=== PATIENT | female | born 1955 | race Caucasian/White ===

== ENCOUNTER 2018-09-16 20:54 | Emergency (ER) | payer OTHER ==
[~2018-09-16] VITALS: Ht 167.6 cm; Wt 55.3 kg
[2018-09-16 21:43] LABS: BASOPHILS ABSOLUTE AUTO 0.02 K/mm3 (0.00-0.23); BASOPHILS PERCENT AUTO 0 % (0-2); EOSINOPHILS PERCENT AUTO 2 % (0-6); Hematocrit 37.8 % (33.0-51.0); Hemoglobin 12.1 g/dL (11.5-16.0); IMMATURE GRAN ABSOLUTE AUTO 0.02 K/mm3 (0.00-0.10); IMMATURE GRAN PERCENT AUTO 0 % (0-1); LYMPHOCYTES ABSOLUTE AUTO 1.07 K/mm3 (0.84-5.20); LYMPHOCYTES PERCENT AUTO 17 % (21-46); MONOCYTES ABSOLUTE AUTO 0.68 K/mm3 (0.16-1.47); MONOCYTES PERCENT AUTO 11 % (4-13); Mean Corpuscular HGB 30.9 pg (26.0-34.0); Mean Corpuscular Volume 97 fL (80-100); NEUTROPHILS ABSOLUTE AUTO 4.38 K/mm3 (1.96-9.15); NEUTROPHILS PERCENT AUTO 70 % (41-73); Platelet Count 200 K/mm3 (150-400); RDW Coefficient Variation 13.8 % (11.7-14.2); RDW Standard Deviation 49.2 fL (35.1-46.3); Red Blood Cell Count 3.91 M/mm3 (3.80-5.20); White Blood Cell Count 6.27 K/mm3 (4.00-11.30)
[2018-09-16 22:10] LABS: Source, Urine Clean Catch
[2018-09-16 22:13] LABS: Bilirubin, Urine Neg (Neg); Blood, Urine 1+ (Neg); Glucose Qualitative, Urine Neg (Neg); Ketones, Urine 4+ (Neg); Leukocyte Esterase, Urine 2+ (Neg); Nitrite, Urine Neg (Neg); Protein, Urine 2+ (Neg); Urobilinogen, Urine 1+ (Normal)
[2018-09-16 22:20] LABS: Alanine Aminotransfer (ALT/SGP 27 U/L (12-78); Albumin, Blood 2.6 g/dL (3.4-5.0); Albumin/Globulin Ratio 0.6 (0.8-1.8); Alk Phos 129 U/L (50-136); Anion Gap 6 mmol/L (6-16); Aspartate Aminotrans (AST/SGOT 17 U/L (12-37); Bilirubin, Total 0.4 mg/dL (0.1-1.0); Blood Urea Nitrogen 9 mg/dL (8-24); Bun/Creatinine Ratio 14.3 (12.0-20.0); CO2, Blood 29 mmol/L (21-32); Calcium, Blood 8.6 mg/dL (8.5-10.1); Chloride, Blood 107 mmol/L (98-108); Creatinine, Blood 0.63 mg/dL (0.40-1.00); Globulin, Blood 4.2 g/dL (2.2-4.0); Glomerular Filtration Rate >60 (60-); Glucose, Blood 93 mg/dL (70-99); Potassium, Blood 3.2 mmol/L (3.5-5.5); Sodium, Blood 142 mmol/L (136-145); Total Protein, Blood 6.8 g/dL (6.4-8.2)
[2018-09-16 22:21] LABS: Amorphous Light (0-Heavy); Appearance, Urine Hazy (Clear); Bacteria Few /hpf; Color, Urine Yellow (P-Yellow); Mucus Mod (0-Heavy); Squamous Epithelial Cells Rare /hpf (Few)
[2018-09-16] MEDS ORDERED: SYNTHROID100 MC1 PO (23:27)
[2018-09-16] MEDS ORDERED: ONDA4 PO (23:27)
[2018-09-16] MEDS ORDERED: VENL37.5ER PO (23:27)
[2018-09-16] MEDS ORDERED: IBUP800 PO (23:27)
[2018-09-16] MEDS ORDERED: TRAZ50 PO (23:28)
[2018-09-16] MEDS ORDERED: BENADRYL25 MG PO (23:29)
[2018-09-16] MEDS ORDERED: Esgic Tablet1 EACH PO (23:30)
== END 2018-09-17 02:00 | disposition short-term general hospital (02) ==
LOC: ER 20:54
PROVIDERS: Emergency Medicine
DX: T81.43XA Infection following a procedure, organ and space surgical site, initial encounter (principal); K65.1 Peritoneal abscess; Z88.8 Allergy status to other drugs, medicaments and biological substances
CPT/HCPCS: 36415; 74177; 80053; 81001; 83605; 85025; 86850; 86900; 86901; 87086; 93005; 93010; 96374-59; 96375-59; 99285-25; J2405; J2543; J2550; J3010; J7030; Q9967

== ENCOUNTER 2018-09-20 00:11 | Day surgery (SDC) | payer OTHER ==
[~2018-09-20 00:11] MED LIST: BENADRYL25 MG PO; Esgic Tablet1 EACH PO; IBUP800 PO; ONDA4 PO; SYNTHROID100 MC1 PO; TRAZ50 PO; VENL37.5ER PO
[2018-09-20] MEDS ORDERED: VALACYCLOVIR500 MG PO (14:06)
== END 2018-09-20 14:30 | disposition home or self-care (01) ==
LOC: ATC 00:11
DX: N73.0 Acute parametritis and pelvic cellulitis (principal); Z90.710 Acquired absence of both cervix and uterus
CPT/HCPCS: 96365; J0696

== ENCOUNTER 2018-09-23 13:39 | Day surgery (SDC) | payer OTHER ==
[~2018-09-23 13:39] MED LIST changes: +VALACYCLOVIR500 MG PO
== END 2018-09-23 14:09 | disposition home or self-care (01) ==
LOC: ATC 13:39
DX: N73.0 Acute parametritis and pelvic cellulitis (principal)
CPT/HCPCS: 96365; J0696

== ENCOUNTER 2018-09-24 13:30 | Day surgery (SDC) | payer OTHER | END 2018-09-24 14:03 | disposition home or self-care (01) | LOC: ATC 13:30 | DX: N73.0 Acute parametritis and pelvic cellulitis (principal) | CPT/HCPCS: 96365; J0696 ==

== ENCOUNTER 2018-09-26 00:25 | Day surgery (SDC) | payer OTHER | END 2018-09-26 15:34 | disposition home or self-care (01) | LOC: ATC 00:25 | DX: N73.0 Acute parametritis and pelvic cellulitis (principal) | CPT/HCPCS: 96365; J0696 ==

== ENCOUNTER 2018-09-27 00:09 | Day surgery (SDC) | payer OTHER | END 2018-09-27 14:23 | disposition home or self-care (01) | LOC: ATC 00:09 | DX: N73.0 Acute parametritis and pelvic cellulitis (principal) | CPT/HCPCS: 96365; J0696 ==

== ENCOUNTER 2018-09-28 00:06 | Day surgery (SDC) | payer OTHER ==
[2018-09-28 16:23] LABS: BASOPHILS PERCENT AUTO 1 % (0-2); EOSINOPHILS ABSOLUTE AUTO 0.07 K/mm3 (0.00-0.68); EOSINOPHILS PERCENT AUTO 1 % (0-6); Hematocrit 35.8 % (33.0-51.0); Hemoglobin 11.2 g/dL (11.5-16.0); IMMATURE GRAN ABSOLUTE AUTO 0.04 K/mm3 (0.00-0.10); IMMATURE GRAN PERCENT AUTO 1 % (0-1); LYMPHOCYTES ABSOLUTE AUTO 1.65 K/mm3 (0.84-5.20); LYMPHOCYTES PERCENT AUTO 20 % (21-46); MONOCYTES ABSOLUTE AUTO 0.72 K/mm3 (0.16-1.47); MONOCYTES PERCENT AUTO 9 % (4-13); Mean Corpuscular HGB 30.4 pg (26.0-34.0); Mean Corpuscular HGB Conc 31.3 g/dL (31.5-36.5); Mean Corpuscular Volume 97 fL (80-100); Mean Platelet Volume 9.2 fL (9.1-12.4); NEUTROPHILS ABSOLUTE AUTO 5.55 K/mm3 (1.96-9.15); NEUTROPHILS PERCENT AUTO 68 % (41-73); Platelet Count 447 K/mm3 (150-400); RDW Coefficient Variation 14.1 % (11.7-14.2); RDW Standard Deviation 49.5 fL (35.1-46.3); Red Blood Cell Count 3.69 M/mm3 (3.80-5.20); White Blood Cell Count 8.13 K/mm3 (4.00-11.30)
[2018-09-28 16:39] LABS: C-REACTIVE PROTEIN, EXT RANGE 0.315 mg/dL (0.000-0.300)
[2018-09-28 16:42] LABS: Alanine Aminotransfer (ALT/SGP 23 U/L (12-78); Albumin, Blood 3.1 g/dL (3.4-5.0); Albumin/Globulin Ratio 0.8 (0.8-1.8); Alk Phos 80 U/L (50-136); Anion Gap 5 mmol/L (6-16); Aspartate Aminotrans (AST/SGOT 19 U/L (12-37); Bilirubin, Total 0.2 mg/dL (0.1-1.0); Blood Urea Nitrogen 14 mg/dL (8-24); Bun/Creatinine Ratio 19.1 (12.0-20.0); CO2, Blood 32 mmol/L (21-32); Calcium, Blood 8.6 mg/dL (8.5-10.1); Chloride, Blood 104 mmol/L (98-108); Creatinine, Blood 0.73 mg/dL (0.40-1.00); Globulin, Blood 4.1 g/dL (2.2-4.0); Glomerular Filtration Rate >60 (60-); Glucose, Blood 106 mg/dL (70-99); Sodium, Blood 141 mmol/L (136-145); Total Protein, Blood 7.2 g/dL (6.4-8.2)
== END 2018-09-28 14:20 | disposition home or self-care (01) ==
LOC: ATC 00:06
PROVIDERS: Internal Medicine
DX: N73.0 Acute parametritis and pelvic cellulitis (principal); D64.9 Anemia, unspecified; E03.9 Hypothyroidism, unspecified; F32.9 Major depressive disorder, single episode, unspecified; Z88.8 Allergy status to other drugs, medicaments and biological substances; Z79.899 Other long term (current) drug therapy
CPT/HCPCS: 80053; 85025; 86140; 96365; J0696

== ENCOUNTER 2018-09-30 14:03 | Day surgery (SDC) | payer OTHER | END 2018-09-30 14:33 | disposition home or self-care (01) | LOC: ATC 14:03 | DX: N73.0 Acute parametritis and pelvic cellulitis (principal); E03.9 Hypothyroidism, unspecified; F32.9 Major depressive disorder, single episode, unspecified; Z88.8 Allergy status to other drugs, medicaments and biological substances; Z79.899 Other long term (current) drug therapy | CPT/HCPCS: 96365 ==

== ENCOUNTER 2018-10-01 14:02 | Day surgery (SDC) | payer OTHER ==
[2018-10-02] MEDS ORDERED: Ceftriaxone2 G1 IV (14:02)
== END 2018-10-01 14:45 | disposition home or self-care (01) ==
LOC: ATC 14:02
DX: N73.0 Acute parametritis and pelvic cellulitis (principal)
CPT/HCPCS: J0696

== ENCOUNTER 2018-10-02 00:29 | Day surgery (SDC) | payer OTHER ==
[2018-10-02] MEDS ORDERED: Ceftriaxone2 G1 IV (14:02)
== END 2018-10-02 14:21 | disposition home or self-care (01) ==
LOC: ATC 00:29
DX: N73.0 Acute parametritis and pelvic cellulitis (principal); E03.9 Hypothyroidism, unspecified; F32.9 Major depressive disorder, single episode, unspecified; Z88.8 Allergy status to other drugs, medicaments and biological substances; Z79.899 Other long term (current) drug therapy
CPT/HCPCS: 96365; J0696

== ENCOUNTER 2018-10-03 00:09 | Day surgery (SDC) | payer OTHER ==
[~2018-10-03 00:09] MED LIST changes: +Ceftriaxone2 G1 IV
== END 2018-10-03 14:40 | disposition home or self-care (01) ==
LOC: ATC 00:09
DX: N73.0 Acute parametritis and pelvic cellulitis (principal)
CPT/HCPCS: 96365; J0696

== ENCOUNTER 2018-10-04 00:19 | Day surgery (SDC) | payer OTHER ==
[2018-10-05] MEDS ORDERED: METR500 PO (14:40)
== END 2018-10-04 15:56 | disposition home or self-care (01) ==
LOC: ATC 00:19
DX: N73.0 Acute parametritis and pelvic cellulitis (principal)
CPT/HCPCS: 96365; J0696

== ENCOUNTER 2018-10-05 00:19 | Day surgery (SDC) | payer OTHER ==
[2018-10-05] MEDS ORDERED: METR500 PO (14:40)
[2018-10-05 15:24] LABS: BASOPHILS ABSOLUTE AUTO 0.06 K/mm3 (0.00-0.23); BASOPHILS PERCENT AUTO 1 % (0-2); EOSINOPHILS ABSOLUTE AUTO 0.06 K/mm3 (0.00-0.68); EOSINOPHILS PERCENT AUTO 1 % (0-6); Hematocrit 34.7 % (33.0-51.0); Hemoglobin 10.9 g/dL (11.5-16.0); IMMATURE GRAN ABSOLUTE AUTO 0.05 K/mm3 (0.00-0.10); IMMATURE GRAN PERCENT AUTO 1 % (0-1); LYMPHOCYTES ABSOLUTE AUTO 1.27 K/mm3 (0.84-5.20); LYMPHOCYTES PERCENT AUTO 14 % (21-46); MONOCYTES ABSOLUTE AUTO 0.73 K/mm3 (0.16-1.47); MONOCYTES PERCENT AUTO 8 % (4-13); Mean Corpuscular HGB 30.2 pg (26.0-34.0); Mean Corpuscular HGB Conc 31.4 g/dL (31.5-36.5); Mean Corpuscular Volume 96 fL (80-100); Mean Platelet Volume 9.3 fL (9.1-12.4); NEUTROPHILS ABSOLUTE AUTO 6.68 K/mm3 (1.96-9.15); NEUTROPHILS PERCENT AUTO 75 % (41-73); Platelet Count 238 K/mm3 (150-400); RDW Coefficient Variation 13.9 % (11.7-14.2); RDW Standard Deviation 49.2 fL (35.1-46.3); Red Blood Cell Count 3.61 M/mm3 (3.80-5.20); White Blood Cell Count 8.85 K/mm3 (4.00-11.30)
[2018-10-05 15:51] LABS: Alanine Aminotransfer (ALT/SGP 17 U/L (12-78); Albumin, Blood 3.1 g/dL (3.4-5.0); Albumin/Globulin Ratio 0.8 (0.8-1.8); Alk Phos 68 U/L (50-136); Anion Gap 7 mmol/L (6-16); Aspartate Aminotrans (AST/SGOT 19 U/L (12-37); Bilirubin, Total 0.4 mg/dL (0.1-1.0); Blood Urea Nitrogen 22 mg/dL (8-24); Bun/Creatinine Ratio 26.6 (12.0-20.0); C-REACTIVE PROTEIN, EXT RANGE 0.423 mg/dL (0.000-0.300); CO2, Blood 29 mmol/L (21-32); Calcium, Blood 8.5 mg/dL (8.5-10.1); Chloride, Blood 103 mmol/L (98-108); Creatinine, Blood 0.83 mg/dL (0.40-1.00); Globulin, Blood 3.8 g/dL (2.2-4.0); Glomerular Filtration Rate >60 (60-); Glucose, Blood 109 mg/dL (70-99); Potassium, Blood 4.2 mmol/L (3.5-5.5); Sodium, Blood 139 mmol/L (136-145); Total Protein, Blood 6.9 g/dL (6.4-8.2)
== END 2018-10-05 15:03 | disposition home or self-care (01) ==
LOC: ATC 00:19
PROVIDERS: Internal Medicine
DX: N73.0 Acute parametritis and pelvic cellulitis (principal)
CPT/HCPCS: 80053; 85025; 86140; 96365; J0696

== ENCOUNTER 2018-10-06 02:14 | Day surgery (SDC) | payer OTHER ==
[~2018-10-06 02:14] MED LIST changes: +METR500 PO
== END 2018-10-06 11:22 | disposition home or self-care (01) ==
LOC: ATC 02:14
DX: N73.0 Acute parametritis and pelvic cellulitis (principal)
CPT/HCPCS: 96365

== ENCOUNTER 2018-10-07 15:40 | Day surgery (SDC) | payer OTHER | END 2018-10-07 16:20 | disposition home or self-care (01) | LOC: ATC 15:40 | DX: N73.0 Acute parametritis and pelvic cellulitis (principal); E03.9 Hypothyroidism, unspecified; F32.9 Major depressive disorder, single episode, unspecified; D64.9 Anemia, unspecified; Z79.899 Other long term (current) drug therapy | CPT/HCPCS: 96365; J0696 ==

== ENCOUNTER 2018-10-08 09:54 | Day surgery (SDC) | payer OTHER | END 2018-10-08 10:35 | disposition home or self-care (01) | LOC: ATC 09:54 | DX: N73.0 Acute parametritis and pelvic cellulitis (principal) | CPT/HCPCS: 96365 ==

== ENCOUNTER 2018-10-09 07:57 | Day surgery (SDC) | payer OTHER | END 2018-10-09 10:18 | disposition home or self-care (01) | LOC: ATC 07:57 | DX: N73.0 Acute parametritis and pelvic cellulitis (principal) | CPT/HCPCS: 96365; J0696 ==

== ENCOUNTER 2018-10-10 08:29 | Day surgery (SDC) | payer OTHER | END 2018-10-10 11:11 | disposition home or self-care (01) | LOC: ATC 08:29 | DX: N73.0 Acute parametritis and pelvic cellulitis (principal) | CPT/HCPCS: 96365; J0696 ==

== ENCOUNTER 2018-10-11 | Day surgery (SDC) | payer OTHER | END 2018-10-11 11:30 | disposition home or self-care (01) | LOC: ATC | DX: N73.0 Acute parametritis and pelvic cellulitis (principal) | CPT/HCPCS: 99211; J0696 ==